=== PATIENT | female | born 1970 | race Caucasian/White ===

== ENCOUNTER 2021-03-06 12:02 | Emergency (ER) | payer OTHER ==
[2021-03-06] MEDS ORDERED: Diphtheria/Tetanus Toxoids,Adult (Td) 0.5 ML SDV IM ONE (13:14)
[2021-03-06] MEDS: Lidocaine 2% 5 ML SDV INJECT ONE ×2 (15:32)
== END 2021-03-06 14:37 | disposition home or self-care (01) ==
LOC: LL.ED 12:02
DX: S01.531A Puncture wound without foreign body of lip, initial encounter (principal); Z88.5 Allergy status to narcotic agent; Z23 Encounter for immunization; W01.198A Fall on same level from slipping, tripping and stumbling with subsequent striking against other object, initial encounter; Y99.0 Civilian activity done for income or pay
CPT/HCPCS: 12011; 70450; 90471; 90714; 99283-25